=== PATIENT | male | born 1960 | race Caucasian/White ===

== ENCOUNTER 2017-10-26 05:53 | Observation (INO) | payer OTHER ==
[~2017-10-26] VITALS: Ht 175.3 cm; Wt 61.9 kg
[2017-10-26 06:23] LABS: CARBON DIOXIDE (BICARBONATE) > 40.0 MEQ/L (20-31); HEMATOCRIT 48.2 % (38.0-50.0); HEMOGLOBIN 15.9 G/DL (12.5-16.6); MCH 32.4 PG (29.0-34.0); MCV 98.4 FL (86-99); PLATELET COUNT 332 K/uL (156-360); RBC DIS.WIDTH-CV 15.4 % (11.8-14.6); RBC DIS.WIDTH-SD 55.8 % (39-53); VENOUS PCO2 95 mm Hg (41-51); WHITE BLOOD COUNT 15.4 K/uL (4.1-10.2)
[2017-10-26 06:30] LABS: CHLORIDE 101 mEq/L (99-109); POTASSIUM 4.4 mEq/L (3.7-5.4); SODIUM 142 mEq/L (136-147)
[2017-10-26 06:31] LABS: GLUCOSE 120 mg/dL (70-99)
[2017-10-26 06:35] LABS: CREATININE 0.7 mg/dL (0.6-1.3); GFR ESTIMATE (CALCULATED) > 59 mL/min/ (58.99-99999)
[2017-10-26 06:36] LABS: UREA NITROGEN (BUN) 15 mg/dL (9-23)
[2017-10-26] MEDS ORDERED: SYMBICORT60 INHALAT IH (10:40)
[2017-10-26] MEDS ORDERED: AZITHROMYCIN250 MG1 PO (10:40)
[2017-10-26] MEDS ORDERED: PREDNISONE20 MG PO (10:41)
[2017-10-26] MEDS ORDERED: PROAIR HFA8.5 GM IH (10:41)
[2017-10-26] MEDS ORDERED: GUAIFENESIN200 M2 PO (10:42)
[2017-10-26] MEDS ORDERED: CYANOCOBALAM1000 MCG PO (10:42)
[2017-10-26] MEDS ORDERED: THEO-24300 MG PO (10:42)
[2017-10-26] MEDS ORDERED: VITAMIN D31000 UNI2 PO (10:43)
[2017-10-26] MEDS ORDERED: ATROVENT 00.5 MG/2.5 IH (10:43)
[2017-10-26] MEDS ORDERED: ALBUTEROL2.5 MG/3 M IH (10:44)
[2017-10-26] MEDS ORDERED: [UNRECOGNIZED DRUG - REMARK] PO (10:50)
[2017-10-26 11:01] LABS: COMMENTS - BLOOD GASES A+C+; DEVICE NC; O2 FLOW 5 L/MIN; SITE RR; TOTAL RESP RATE 22 resp/min
[2017-10-26 11:02] LABS: BASE EXCESS 7.9 mEq/L (-3 to +3); BICARBONATE 35.8 mEq/L (22-26); CARBOXY HGB 3.3 % (0-5); METHEMOGLOBIN 1.1 % (0-1.5); PCO2 62 mm Hg (35-45); PO2 70 mm Hg (80-100); pH 7.37 (7.35-7.45)
[2017-10-26 13:17] VITALS: BP 131/86
[2017-10-26 17:38] VITALS: BP 115/72
[2017-10-26 19:32] VITALS: BP 116/71
[2017-10-27 00:09] VITALS: BP 123/81
[2017-10-27 03:23] VITALS: BP 130/87
[2017-10-27 07:22] VITALS: BP 139/80
[2017-10-27 08:26] LABS: HEMATOCRIT 48.4 % (38.0-50.0); HEMOGLOBIN 16.1 G/DL (12.5-16.6); MCH 32.1 PG (29.0-34.0); MCHC 33.3 G/DL (30.0-36.0); MCV 96.6 FL (86-99); PLATELET COUNT 353 K/uL (156-360); RBC DIS.WIDTH-CV 14.7 % (11.8-14.6); RBC DIS.WIDTH-SD 52.8 % (39-53); RED BLOOD COUNT 5.01 M/uL (4.00-5.50); WHITE BLOOD COUNT 13.3 K/uL (4.1-10.2)
[2017-10-27 08:53] LABS: CHLORIDE 98 MEQ/L (99-109); CREATININE 0.5 MG/DL (0.6-1.3); GFR ESTIMATE (CALCULATED) > 59 mL/min/ (58.99-99999); GLUCOSE 164 mg/dL (70-99); POTASSIUM 4.4 MEQ/L (3.7-5.4); SODIUM 136 MEQ/L (136-147); UREA NITROGEN (BUN) 10 mg/dL (9-23)
[2017-10-27] MEDS ORDERED: AZITHROMYCIN500 M1 PO (09:27)
[2017-10-27] MEDS ORDERED: PREDNISONE10 MG PO (09:27)
[2017-10-27 11:22] VITALS: BP 137/80
== END 2017-10-27 14:12 | disposition home or self-care (01) ==
LOC: EME → EDBD 05:53 → EME 05:53 → 5SOUTH 11:29 → EDOF 11:29 → ENRESERV 11:35 → 5SOUTH 12:57
PROVIDERS: Emergency Medicine; Physician Assistant Medical
DX: J96.22 Acute and chronic respiratory failure with hypercapnia (principal); J44.1 Chronic obstructive pulmonary disease with (acute) exacerbation; Z99.81 Dependence on supplemental oxygen; Z79.52 Long term (current) use of systemic steroids; Z83.3 Family history of diabetes mellitus; Z82.49 Family history of ischemic heart disease and other diseases of the circulatory system; F17.210 Nicotine dependence, cigarettes, uncomplicated
CPT/HCPCS: 36600; 71045; 80048; 82803; 85027; 87040; 93005; 94002; 94640; 94799; 99281; 99285; G0378; J0456; J0696; J1650; J2060; J2930

== ENCOUNTER 2017-11-08 23:32 | Inpatient (IN) | payer OTHER ==
[~2017-11-08] VITALS: Ht 175.3 cm; Wt 64.0 kg
[~2017-11-08 23:32] MED LIST: ALBUTEROL2.5 MG/3 M IH; ATROVENT 00.5 MG/2.5 IH; AZITHROMYCIN250 MG1 PO; AZITHROMYCIN500 M1 PO; CYANOCOBALAM1000 MCG PO; GUAIFENESIN200 M2 PO; PREDNISONE10 MG PO; PREDNISONE20 MG PO; PROAIR HFA8.5 GM IH; SYMBICORT60 INHALAT IH; THEO-24300 MG PO; VITAMIN D31000 UNI2 PO; [UNRECOGNIZED DRUG - REMARK] PO
[2017-11-09 00:07] LABS: HEMATOCRIT 48.6 % (38.0-50.0); HEMOGLOBIN 15.9 G/DL (12.5-16.6); MCH 32.2 PG (29.0-34.0); MCHC 32.7 G/DL (30.0-36.0); MCV 98.4 FL (86-99); PLATELET COUNT 322 K/uL (156-360); RBC DIS.WIDTH-CV 14.5 % (11.8-14.6); RBC DIS.WIDTH-SD 52.9 % (39-53); RED BLOOD COUNT 4.94 M/uL (4.00-5.50); WHITE BLOOD COUNT 14.9 K/uL (4.1-10.2)
[2017-11-09 00:08] LABS: ALBUMIN 4.1 g/dL (3.2-4.8)
[2017-11-09 00:09] LABS: CHLORIDE 101 mEq/L (99-109); POTASSIUM 4.2 mEq/L (3.7-5.4); SODIUM 139 mEq/L (136-147)
[2017-11-09 00:11] LABS: GLUCOSE 108 mg/dL (70-99)
[2017-11-09 00:13] LABS: TOTAL BILIRUBIN 0.3 mg/dL (0.0-1.0)
[2017-11-09 00:14] LABS: ALKALINE PHOSPHATASE 70 IU/L (3-129)
[2017-11-09 00:15] LABS: CREATININE 0.8 mg/dL (0.6-1.3); GFR ESTIMATE (CALCULATED) > 59 mL/min/ (58.99-99999)
[2017-11-09 00:15] LABS: COMMENTS - BLOOD GASES A+C+; DEVICE VENT; FI02 90 %; SITE LR
[2017-11-09 00:16] LABS: AST (GOT) 79 IU/L (2-34); UREA NITROGEN (BUN) 16 mg/dL (9-23)
[2017-11-09 00:16] LABS: BICARBONATE 29.3 mEq/L (22-26); CARBOXY HGB 4.1 % (0-5); METHEMOGLOBIN 1.2 % (0-1.5); MODE PRESSURE SUPPORT; O2 SATURATION (CALCULATED) 99.8 % (95-99); PCO2 53 mm Hg (35-45); PEEP 10 CM/H20; PO2 476 mm Hg (80-100); PRES. SUPPORT 14 CM/H2O; TOTAL RESP RATE 24 resp/min; pH 7.35 (7.35-7.45)
[2017-11-09 00:17] LABS: BASE EXCESS 2.3 mEq/L (-3 to +3)
[2017-11-09 00:18] LABS: ALT (GPT) 64 IU/L (3-49); LIPASE 26 U/L (1.0-51.0)
[2017-11-09 00:24] LABS: TROP-I INTERPRETATION NEGATIVE; TROPONIN-I < 0.01 ng/mL (0.0-0.30)
[2017-11-09 03:44] LABS: CARBOXY HGB 3.7 % (0-5); COMMENTS - BLOOD GASES A+C+; DEVICE NCHH; FI02 30 %; MECHANICAL RATE 20 resp/min; O2 FLOW 40 L/MIN; O2 SATURATION (CALCULATED) 95.2 % (95-99); PCO2 61 mm Hg (35-45); PO2 67 mm Hg (80-100); SITE RR
[2017-11-09 03:45] LABS: BASE EXCESS 0.3 mEq/L (-3 to +3); BICARBONATE 28.7 mEq/L (22-26); METHEMOGLOBIN 1.1 % (0-1.5); pH 7.28 (7.35-7.45)
[2017-11-09 05:16] LABS: D-DIMER ELISA < 150.00 ng/mLDDU (<230)
[2017-11-09 05:18] LABS: COMMENTS - BLOOD GASES A+C+; DEVICE HEATED HIGH FLOW NC; FI02 30 %; MECHANICAL RATE 20 resp/min; O2 FLOW 50 L/MIN; O2 SATURATION (CALCULATED) 94.9 % (95-99); PCO2 56 mm Hg (35-45); PO2 59 mm Hg (80-100); SITE RR; pH 7.33 (7.35-7.45)
[2017-11-09 05:19] LABS: BASE EXCESS 2.1 mEq/L (-3 to +3); BICARBONATE 29.5 mEq/L (22-26); CARBOXY HGB 3.5 % (0-5); METHEMOGLOBIN 1.2 % (0-1.5)
[2017-11-09 08:40] VITALS: BP 122/84
[2017-11-09 08:42] VITALS: BP 122/84
[2017-11-09 13:30] VITALS: BP 131/79; BP 1313/79
[2017-11-09 17:00] VITALS: BP 115/72
[2017-11-09 19:09] VITALS: BP 131/85
[2017-11-09 22:53] VITALS: BP 120/76
[2017-11-10 03:45] VITALS: BP 106/71
[2017-11-10 05:55] LABS: HEMATOCRIT 43.9 % (38.0-50.0); HEMOGLOBIN 14.3 G/DL (12.5-16.6); MCH 31.6 PG (29.0-34.0); MCHC 32.6 G/DL (30.0-36.0); MCV 97.1 FL (86-99); PLATELET COUNT 299 K/uL (156-360); RBC DIS.WIDTH-CV 14.5 % (11.8-14.6); RBC DIS.WIDTH-SD 51.8 % (39-53); RED BLOOD COUNT 4.52 M/uL (4.00-5.50); WHITE BLOOD COUNT 20.1 K/uL (4.1-10.2)
[2017-11-10 06:09] LABS: CHLORIDE 101 MEQ/L (99-109); CREATININE 0.5 MG/DL (0.6-1.3); GFR ESTIMATE (CALCULATED) > 59 mL/min/ (58.99-99999); GLUCOSE 136 mg/dL (70-99); POTASSIUM 3.7 MEQ/L (3.7-5.4); SODIUM 137 MEQ/L (136-147); UREA NITROGEN (BUN) 9 mg/dL (9-23)
[2017-11-10 09:12] VITALS: BP 117/84
[2017-11-10 11:13] VITALS: BP 128/73
[2017-11-10 19:00] VITALS: BP 126/77
[2017-11-10 22:30] VITALS: BP 118/78
[2017-11-11 04:00] VITALS: BP 120/91
[2017-11-11 07:30] VITALS: BP 134/93
[2017-11-11 08:19] LABS: HEMATOCRIT 43.7 % (38.0-50.0); HEMOGLOBIN 14.4 G/DL (12.5-16.6); MCH 31.6 PG (29.0-34.0); PLATELET COUNT 307 K/uL (156-360); RBC DIS.WIDTH-CV 14.5 % (11.8-14.6); RBC DIS.WIDTH-SD 50.8 % (39-53); RED BLOOD COUNT 4.55 M/uL (4.00-5.50); WHITE BLOOD COUNT 18.8 K/uL (4.1-10.2)
[2017-11-11] MEDS ORDERED: PREDNISONE20 MG PO (12:10)
[2017-11-11] MEDS ORDERED: LEVAQUIN750 MG PO (12:10)
[2017-11-11 12:15] VITALS: BP 135/80
== END 2017-11-11 14:13 | disposition home or self-care (01) | DRG 190 ==
LOC: EME → EDBD 23:32 → 4EAST 11-09 05:46 → EDOF 11-09 05:46 → ENRESERV 11-09 05:47 → 4EAST 11-09 07:45
PROVIDERS: Emergency Medicine; Hospitalist
DX: J44.1 Chronic obstructive pulmonary disease with (acute) exacerbation (principal); J96.21 Acute and chronic respiratory failure with hypoxia; F17.210 Nicotine dependence, cigarettes, uncomplicated; J96.22 Acute and chronic respiratory failure with hypercapnia; I10 Essential (primary) hypertension; J20.9 Acute bronchitis, unspecified; J44.0 Chronic obstructive pulmonary disease with (acute) lower respiratory infection; Z83.3 Family history of diabetes mellitus; Z99.81 Dependence on supplemental oxygen
CPT/HCPCS: 36600; 71045; 80048; 80053; 81003; 83605; 83690; 83880; 84484; 85027; 85379; 87040; 93005; 93970; 94640; 94644; 94645; 94799; 99281; 99285; J1650; J1956; J2060; J2930; J3370; J3475; J7030